=== PATIENT | female | born 1965 | race Caucasian/White ===

== ENCOUNTER → 2019-01-30 | Outpatient (CLI) | payer OTHER, SELFPAY ==
[2019-01-30 16:32] VITALS: BMI 35.3
[2019-01-31 10:18] LABS: Mucous, Urine 0 SEEN /hpf (<or=2+)
[2019-01-31 10:32] LABS: Color, Urine Yellow (Yellow); Glucose, Dipstick Normal (Normal); Ketone-Dipstick Negative (Negative); Leukocyte Esterase-Dipstick 500 /ul (Negative); Nitrite-Dipstick Negative (Negative); Occult Blood-Urine 25 /ul (Negative); Protein-Dipstick 15 mg/dl (Negative); Specific Gravity, Urine 1.015 (1.002-1.030); Urine Bilirubin Dipstick Negative (Negative); Urine Clarity Sl. Cloudy (Clear); Urine Urobilinogen Normal (Normal)
[2019-01-31 10:41] LABS: Bacteria 1+ /hpf (None Seen); Red Blood Cells-Urine 0-5 SEEN /hpf (0-5); Squamous Epithelial Cells - UA 0-5 SEEN /hpf (5-10); White Blood Cells 25-50 SEEN /hpf (0-5)
== END | disposition home or self-care (01) ==
LOC: LABSPEC 01-31 10:14
PROVIDERS: Family Provider Family Medicine; PCP Family Medicine; Referring Provider Nurse Practitioner Family; Visit Provider Nurse Practitioner Family
DX: O26.899 Other specified pregnancy related conditions, unspecified trimester (principal); R30.0 Dysuria; Z3A.00 Weeks of gestation of pregnancy not specified
CPT/HCPCS: 81001; 87086; 87088; 87186

== ENCOUNTER 2021-10-18 20:03 | Emergency (ER) | payer OTHER, SELFPAY ==
[2021-10-18 20:04] VITALS: BP 160/120; PULSE 83; RESP 18; TEMP 37.1; O2SAT 100; BMI 43.5
--- NOTE | 2021-10-18 20:50 | EDS_ITS ---
HPI HPI - GI History of Present Illness Chief Complaint: Diarrhea Detail of Chief Complaint: Diarrhea for 24 hours Informant: patient Diarrhea/Melena/Hematochezia GI Symptom: Positive for Diarrhea Narrative Narrative: Patient presents with diarrhea that started 24 hours ago. Patient states that she is going nonstop and having watery stools. She denies recent antibiotic usage. 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 Patient having dry heaves and states she cannot vomit because she has had bariatric surgery. Patient denies fevers. She denies urinary symptoms. She denies significant abdominal pain. Patient has not taken any Imodium because she does not think she can keep it down. Prior similar symptoms: No PFSH PFSH Medical History (Updated 10/18/21 @ 21:[address] Deon Moncada, DO) Anemia Home Medications oumpdaoc-elv-iwjx-FA-lutein 1 ea PO DAILY 11/02/15 [History Last Taken Unknown] ascorbate calcium (vitamin C) 500 mg tablet 500 mg PO DAILY 01/30/19 [History Last Taken Unknown] cyanocobalamin (vitamin B-12) 500 mcg tablet 500 mcg PO DAILY 01/30/19 [History Last Taken Unknown] ondansetron 4 mg PO Q8H PRN PRN #10 tab 10/18/21 [Rx Last Taken Unknown] Allergy/AdvReac Type Severity Reaction Status Date / Time No Known Allergies Allergy Verified 10/18/21 20:04 Family History Unknown Cancer Diabetes Obesity Arthritis Surgical History Bariatr surg stat w p/p Cholecystectomy planned History of appendectomy Social History Smoking Status: Never smoker ROS ROS ED Constitutional Constitutional ED: Reports systems reviewed and no addt'l complaints, except as documented; Denies body ache(s), change in weight or chills Eyes Eyes: Denies acute decrease in peripheral vision, change in vision, double vision or loss of vision ENT ENT ED: Reports none; Denies ear pain, lip swelling, loss taste/smell, neck pain, otalgia or sore throat Cardiovascular Cardiovascular: Reports none; Denies abdominal pain, chest pain with activity, leg edema, lightheadedness, palpitations, rapid heart rate or syncope Respiratory/Chest Respiratory/Chest: Reports none; Denies change in mental status, dry cough, dyspnea, hemoptysis, shortness of breath at rest or shortness of breath with exertion Gastrointestinal Gastrointestinal: Reports none, diarrhea and nausea; Denies abdominal pain, change in stool character, hematemesis, hematochezia, melena, rectal bleeding or vomiting Genitourinary Genitourinary ED: Reports none; Denies abdominal discomfort, anuria, dysuria, genital pain or polyuria Musculoskeletal Musculoskeletal: Reports none; Denies arthralgias, back pain, difficulty walking, extremity pain, muscle weakness or myalgias Integumentary Reports none; Denies abscess or rash Neurologic Neurologic: Reports none; Denies abnormal gait, confusion, focal weakness, frequent falls, headache(s), loss of vision, numbness, paresthesias, radicular pain, vertigo or weakness Psychiatric Psychiatric: Reports systems reviewed and no addt'l complaints, except as documented and none; Denies behavioral changes, confusion, difficulty concentrating, hallucinations, suicidal ideation, tactile hallucinations or visual hallucinations Endocrine Endocrinology: Denies none, cold intolerance, excessive sweating, fatigue or heat intolerance Hematologic/Lymphatic Hematologic/Lymphatic: Reports none; Denies anemia, easy bleeding or easy bruising Allergic/Immunologic Allergic/Immunologic ED: Denies as per HPI, none, lip swelling, mouth swelling, throat swelling, tongue swelling or hives EXAM Physical Exam Const Vital Signs: 10/18/21 20:04 Temperature 98.7 F Temperature Source Temporal Pulse Rate 83 Respiratory Rate 18 Blood Pressure 160/120 H Blood Pressure Mean 133 Pulse Ox 100 Oxygen Delivery Method Room Air Positive well nourished and well developed General Appearance ED: well developed and NAD HEENT Reports TM's clear and moist mucous membranes normocephalic and atraumatic; Negative for trauma or tenderness Tympanic Membrane ED: Yes TM's clear Eyes PERRL and EOMs intact bilaterally General Eye ED: Negative for pale conjunctiva or scleral icterus Neck no lymphadenopathy, supple and no JVD General: Negative for tenderness Chest Wall inspection of chest normal and palpation of chest normal Chest: Negative for tenderness Resp normal respiratory effort and clear to auscultation bilaterally Effort and Inspection: Negative for respiratory distress or pain with movement Auscultation: Negative for rhonchi, wheezes or diminished lung sounds Cardio regular rate, regular rhythm, S1 normal heart sound, S2 normal heart sound and no murmurs Peripheral Pulses: pulses 2+ throughout GI normal to inspection, nondistended, normoactive bowel sounds, soft to palpation, non-tender, non-distended and no masses Back/Spine no CVA tenderness and no thoracic nor lumbar tenderness Extremity normal to inspection General Extremety ED: Negative for edema General Extremity: Negative for edema Neuro oriented x3, CN's II-XII intact bilaterally, no sensory deficits noted and gait normal Sensorium / Orientation: awake, alert, oriented to person, oriented to place and oriented to time Motor Exam: strength 5/5 throughout and strength abnormal Psych mental status grossly normal Skin no rashes or lesions noted and no wounds MDM MDM MDM Narrative Medical decision making narrative: Line established on arrival. Patient was given a liter normal saline fluid bolus. She was given Zofran 4 mg IV and Imodium. She was feeling improved. At this point suspect a viral gastroenteritis. I did give her 40 mEq of potassium chloride as her potassium was slightly depressed at 3.2. Patient will be given a prescription for Zofran and advised to use Imodium as needed for the diarrhea. She is advised to push fluids. Patient to return if persistent vomiting, diarrhea, dehydration, severe abdominal pain, or condition should worsen anyway. Lab Data Labs: Laboratory Results - last 24 hr 10/18/21 10/18/21 20:57 20:57 WBC 5.4 RBC 5.39 Hgb 15.9 H Hct 46.8 MCV 86.8 MCH 29.5 MCHC 34.0 RDW Std Deviation 39.4 RDW Coeff of [place] 12.4 Plt Count 204 MPV 10.1 Immature Gran % (Auto) 0.200 Neut % (Auto) 82.2 H Lymph % (Auto) 6.9 L [place] % (Auto) 10.1 H Eos % (Auto) 0.2 Baso % (Auto) 0.4 Absolute Neuts (auto) 4.4 Absolute Lymphs (auto) 0.37 L Nucleated RBC % 0 Differential Comment SCANNED Sodium 136 Potassium 3.2 L Chloride 107 Carbon Dioxide 22.0 Anion Gap 7 BUN 12 Creatinine 0.78 Estim Creat Clear Calc 74.49 Est GFR (MDRD) Af Amer 98 Est GFR (MDRD) Non-Af 81 BUN/Creatinine Ratio 15.4 Glucose 136 H Calcium 8.9 Discharge Plan Triage Chief Complaint: Diarrhea ED Provider: Deon Moncada Dx/Rx/DC Orders Clinical Impression: Viral gastroenteritis, Acute hypokalemia Instructions: ED Hypokalemia, ED Gastroenteritis, Viral (Adult) Prescriptions: New ondansetron [ondansetron] 4 MG tablet 4 mg PO Q8H PRN PRN (Reason: Nausea) Qty: 10 RF: 0 No Action ascorbate calcium (vitamin C) 500 mg tablet 500 mg PO DAILY RF: 0 cyanocobalamin (vitamin B-12) [B-12 DOTS] 500 mcg tablet 500 mcg PO DAILY RF: 0 hbonjrui-irl-mxmo-FA-lutein 1 EACH tablet 1 ea PO DAILY RF: 0 Primary Care Provider: Kuldeep Ryan Referrals: Kuldeep Ryan DO [Primary Care Provider] - 3-5 Days Disposition Disposition: Home, Self Care
[2021-10-18] MEDS: 0.9% Normal Saline 1,000 ML 1000 ML IV (20:58)
[2021-10-18] MEDS: Loperamide 2 MG Capsule 4 MG PO (21:06)
[2021-10-18] MEDS: Ondansetron 4 MG/2 ML Vial IV (21:06)
[2021-10-18 21:17] LABS: Absolute Lymphocyte Count 0.37 X10^3/uL (0.83-4.51); Absolute Neutrophil Count 4.4 X10^3/uL (2.0-7.7); Basophil# 0.02 X10^3/uL; Basophil% 0.4 % (0-1); Eosinophil# 0.01 X10^3/uL; Eosinophils% 0.2 % (0-5); Hematocrit 46.8 % (37-47); Hemoglobin 15.9 g/dL (12.0-15.0); Lymphocyte # 0.37 X10^3/ul (0.83-4.51); Lymphocyte % 6.9 % (19-41); Mean Corpuscular Hgb 29.5 pg (27.0-32.0); Mean Corpuscular Volume 86.8 fL (81-99); Mean Platelet Vol. 10.1 fl (6.2-12.0); Monocyte# 0.54 X10^3/uL; Monocyte% 10.1 % (0-10); NRBC Flagged by Analyzer 0 % (0-5); Neutrophil # 4.41 X10^3/uL (2.7-7.7); Neutrophil % 82.2 % (47-70); POSITIVE DIFFERENTIAL YES; POSITIVE MORPHOLOGY YES; Platelet Count 204 K/mm3 (150-450); RBC Distribution Width CV 12.4 % (11.6-14.6); RBC Distribution Width SD 39.4 fl (35.1-43.9); Red Blood Count 5.39 M/mm3 (4.2-5.4); White Blood Count 5.4 K/mm3 (4.4-11.0)
[2021-10-18 21:19] LABS: Differential Indicated SCAN CRITERIA MET
[2021-10-18 21:29] LABS: Anion Gap 7 (5-15); BUN 12 mg/dL (7-18); BUN/Creat Ratio 15.4 RATIO (10-20); Calcium,Total 8.9 mg/dL (8.5-10.1); Chloride 107 mmol/L (98-107); Creatinine, Serum 0.78 mg/dL (0.55-1.02); EST Glomerular Filtration Rate 81 mL/min (>60); Est Glom Filt Rate - Afr Amer 98 mL/min (>60); Estimated Creatinine Clearance 74.49 ml/min; Glucose 136 mg/dL (74-106); Potassium 3.2 mmol/L (3.5-5.1); Sodium Level 136 mmol/L (136-145)
[2021-10-18 21:44] LABS: Differential Comment SCANNED
[2021-10-18] MEDS: Potassium Chloride Oral Tablet 20 MEQ 40 MEQ PO (21:48)
== END 2021-10-18 22:03 | disposition home or self-care (01) ==
PROVIDERS: Emergency Provider Emergency Medicine; PCP Student in an Organized Health Care Education/Training Program; Visit Provider Emergency Medicine
DX: A08.4 Viral intestinal infection, unspecified (principal); E87.6 Hypokalemia
CPT/HCPCS: 80048; 85025; 96361; 96374; 99283; J7030; A4216; J2405

== ENCOUNTER 2021-10-22 12:23 | Emergency (ER) | payer OTHER, SELFPAY ==
[2021-10-22 12:23] VITALS: BP 146/107; PULSE 79; RESP 18; TEMP 36.5; O2SAT 97; BMI 45.1
--- NOTE | 2021-10-22 13:01 | EX.ED.DYSGE1 ---
HPI <SHELDON Cordoba - Last Filed: 10/22/21 14:05> History of Present Illness Chief Complaint: Nausea/Vomiting/Diarrhea Narrative Narrative: 56-year-old female with history of gastric bypass surgery 18 years ago, hypertension presents to the emergency department with multiple days of nausea, vomiting, diarrhea. Patient states that everything that she drinks goes through her and diarrhea. Patient states last evening she was up at 4 AM to 6 AM having diarrhea. Patient was seen here on October 18, 2021 which was 4 days ago, patient states that her symptoms persisted. She did have slightly low potassium, and today she is feels weak, denies any bladder and stool or vomit. Patient has no abdominal pain. Patient denies any fevers or chills. 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 PFSH <SHELDON Cordoba - Last Filed: 10/22/21 14:05> [facility] Medical History (Updated 10/22/21 @ 14:00 by SHELDON Cordoba) Anemia Home Medications fpzegohe-vti-wyhb-FA-lutein 1 ea PO DAILY 11/02/15 [History Last Taken Unknown] ascorbate calcium (vitamin C) 500 mg tablet 500 mg PO DAILY 01/30/19 [History Last Taken Unknown] cyanocobalamin (vitamin B-12) 500 mcg tablet 500 mcg PO DAILY 01/30/19 [History Last Taken Unknown] ondansetron 4 mg PO Q8H PRN PRN #10 tab 10/18/21 [Rx Last Taken Unknown] promethazine 25 mg PO TID PRN #10 tab 10/22/21 [Rx Last Taken Unknown] Allergy/AdvReac Type Severity Reaction Status Date / Time No Known Allergies Allergy Verified 10/18/21 20:04 Family History Unknown Cancer Diabetes Obesity Arthritis Surgical History Bariatrc surg stat w p/p Cholecystectomy planned History of appendectomy Social History Smoking Status: Never smoker ROS <SHELDON Cordoba - Last Filed: 10/22/21 14:05> ROS ED ROS Narrative Constitutional: Negative for fever, chills, weight loss, weakness Eyes: Negative for vision loss, vision change, double vision ENT: Negative for any sore throat, ear pain, congestion Cardiovascular: Negative for any chest pain, tightness, palpitations, racing heartbeat Respiratory: Negative for any cough, sputum production, hemoptysis, shortness of breath, shortness of breath on exertion, orthopnea Gastrointestinal: Negative for any abdominal pain, constipation, blood in stool, blood in vomit. Positive for nausea, vomiting, diarrhea : Negative for any urinary frequency, incontinence, dysuria, retention, blood in urine Muscle skeletal: Negative for any muscle joint pain, stiffness, myalgias, arthralgias, neck pain, back pain Neurological: Negative for any headache, dizziness, syncope, numbness or tingling Skin: Negative for any rashes, lumps, itching, abrasions, lacerations Psychiatric: Negative for any depression, anxiety, stress, suicidal ideation, homicidal ideation Hematologic: Negative for any easy bruising, excessive bruising, easy bleeding Allergies: Negative for any eczema, hives, rash EXAM <SHELDON Cordoba - Last Filed: 10/22/21 14:05> Physical Exam Narrative Exam Narrative: Vital signs reviewed. Patient was drinking oral fluids on initial exam. Patient appears to be in no distress. HEET: Head normocephalic atraumatic, TMs clear bilaterally. Posterior pharynx is clear, moist mucous membranes. Nares clear bilaterally. Neck: Supple with no lymphadenopathy or tenderness. No signs of meningismus, negative jolt sign. Cardiac: Regular rate and rhythm no murmurs gallops or rubs, equal peripheral pulses bilaterally. Respiratory: Lungs clear to auscultation bilaterally. No chest tenderness. Abdomen: Soft, nontender, nondistended. No abdominal bruit or pulsatile masses. No hepatosplenomegaly Extremities: No peripheral edema, no signs of gross trauma or deformity. Active full range of motion of all extremities. Neuro: Cranial nerves II through XII intact, no focal neurological deficits. Skin: Clean dry and intact with no rash, purpura, petechiae, vesicles or pustules. Backslash flank: No CVA tenderness, no midline spinal tenderness, no deformity. Psych: Normal mood and affect. No SI, HI or acute psychosis. Const Vital Signs: 10/22/21 12:23 10/22/21 14:20 Temperature 97.7 F L Temperature Source Temporal Pulse Rate 79 61 Respiratory Rate 18 18 Blood Pressure 146/107 H 116/85 H Blood Pressure Mean 120 Pulse Ox 97 Oxygen Delivery Method Room Air Positive well nourished and well developed General Appearance ED: well developed <Dr. Vipul Aviles, DO - Last Filed: 10/22/21 15:49> Physical Exam Const Vital Signs: 10/22/21 12:23 10/22/21 14:20 Temperature 97.7 F L Temperature Source Temporal Pulse Rate 79 61 Respiratory Rate 18 18 Blood Pressure 146/107 H 116/85 H Blood Pressure Mean 120 Pulse Ox 97 Oxygen Delivery Method Room Air MDM <SHELDON Cordoba - Last Filed: 10/22/21 14:05> MDM MDM Narrative Medical decision making narrative: Patient appears well, patient appears nontoxic, vital signs are stable. Patient presents to the emergency department with complaints of continued nausea and vomiting for the last 5 days. Patient was seen here 2 days ago for the same and was discharged home. Patient was drinking by mouth fluids on my initial exam. Patient appeared well. Patient CBC was unremarkable, chemistry showed a normal potassium, this was low previously. Lactic acid was negative. Patient had no pain in her abdomen or pelvis I do not believe that any radiology would be necessary. Patient received IV fluids, IV Zofran x2, patient on reassessment looked well. At this time, I believe the patient is stable for discharge, she will be given Phenergan for home. Instructed return for any worsening symptoms. Patient is stable for discharge. Lab Data Attestation: I reviewed the patient's lab results. Labs: Laboratory Results - last 24 hr 10/22/21 10/22/21 10/22/21 13:00 13:00 13:00 WBC 4.8 RBC 5.29 Hgb 15.5 H Hct 45.5 MCV 86.0 MCH 29.3 MCHC 34.1 RDW Std Deviation 38.9 RDW Coeff of [place] 12.3 Plt Count 192 MPV 10.5 Immature Gran % (Auto) 1.900 H Neut % (Auto) 51.4 Lymph % (Auto) 21.1 [place] % (Auto) 23.6 H Eos % (Auto) 1.4 Baso % (Auto) 0.6 Absolute Neuts (auto) 2.5 Absolute Lymphs (auto) 1.02 Nucleated RBC % 0 Differential Comment SCANNED Sodium 140 Potassium 3.5 Chloride 106 Carbon Dioxide 26.0 Anion Gap 8 BUN 11 Creatinine 0.80 Estim Creat Clear Calc 71.76 Est GFR (MDRD) Af Amer 95 Est GFR (MDRD) Non-Af 79 BUN/Creatinine Ratio 13.8 Glucose 109 H Lactic Acid 0.8 Calcium 8.8 Total Bilirubin 0.70 AST 51 H ALT 81 H Alkaline Phosphatase 115 Total Protein 6.9 Albumin 3.2 Globulin 3.7 Albumin/Globulin Ratio 0.9 Lipase 31 L <Dr. Vipul Aviles, DO - Last Filed: 10/22/21 15:49> MDM MDM Narrative Medical decision making narrative: This patient was seen with a PA/ENERGY RATER Individually assessed they patient including history and physical. I have reviewed everything on the chart that is available and agree with the documentation provided by the PA/ENERGY RATER including discussion about the assessment, treatment plan, discussion, and return precautions. 56-year-old female returning for persistent nausea and vomiting. CBC and BMP are obtained and within normal limits. Lactate negative. Patient given Zofran, IV fluids and on reevaluation is doing well. Since her nausea is improved I feel she is stable for discharge. I will add Phenergan to her home-going so she can alternate Zofran with this. She is counseled on a bland diet and advancing as tolerated. Impression: 1. Gastroenteritis Lab Data Attestation: I reviewed the patient's lab results. Labs: Laboratory Results - last 24 hr 10/22/21 10/22/21 10/22/21 13:00 13:00 13:00 WBC 4.8 RBC 5.29 Hgb 15.5 H Hct 45.5 MCV 86.0 MCH 29.3 MCHC 34.1 RDW Std Deviation 38.9 RDW Coeff of [place] 12.3 Plt Count 192 MPV 10.5 Immature Gran % (Auto) 1.900 H Neut % (Auto) 51.4 Lymph % (Auto) 21.1 [place] % (Auto) 23.6 H Eos % (Auto) 1.4 Baso % (Auto) 0.6 Absolute Neuts (auto) 2.5 Absolute Lymphs (auto) 1.02 Nucleated RBC % 0 Differential Comment SCANNED Sodium 140 Potassium 3.5 Chloride 106 Carbon Dioxide 26.0 Anion Gap 8 BUN 11 Creatinine 0.80 Estim Creat Clear Calc 71.76 Est GFR (MDRD) Af Amer 95 Est GFR (MDRD) Non-Af 79 BUN/Creatinine Ratio 13.8 Glucose 109 H Lactic Acid 0.8 Calcium 8.8 Total Bilirubin 0.70 AST 51 H ALT 81 H Alkaline Phosphatase 115 Total Protein 6.9 Albumin 3.2 Globulin 3.7 Albumin/Globulin Ratio 0.9 Lipase 31 L Discharge Plan Triage Chief Complaint: Nausea/Vomiting/Diarrhea ED Midlevel Provider: Tre Yi ED Provider: Vipul Aviles Dx/Rx/DC Orders Clinical Impression: Gastroenteritis Instructions: ED Gastritis (Adult) Prescriptions: New promethazine 25 mg tablet 25 mg PO TID PRN (Reason: nausea and vomiting) Qty: 10 RF: 0 No Action ascorbate calcium (vitamin C) 500 mg tablet 500 mg PO DAILY RF: 0 cyanocobalamin (vitamin B-12) [B-12 DOTS] 500 mcg tablet 500 mcg PO DAILY RF: 0 gcvcgeth-xrl-ewue-FA-lutein 1 EACH tablet 1 ea PO DAILY RF: 0 ondansetron [ondansetron] 4 MG tablet 4 mg PO Q8H PRN PRN (Reason: Nausea) Qty: 10 RF: 0 Stand Alone Forms: ED Work / School Excuse Primary Care Provider: Kuldeep Ryan Referrals: Kuldeep Ryan DO [Primary Care Provider] - Activity Restrictions/Additional Instructions: Please eat a bland diet, please return for any worsening symptoms. Please take Phenergan as needed, there is a side effect of dizziness, sleepiness with the Phenergan Print Language: Scottish Disposition Disposition: Home, Self Care Discharge Date/Time: 10/22/21 14:22
[2021-10-22] MEDS: Ondansetron 4 MG/2 ML Vial IV ×2 (13:02→14:02)
[2021-10-22] MEDS: 0.9% Normal Saline 1,000 ML 1000 ML IV (13:02)
[2021-10-22 13:12] LABS: Absolute Lymphocyte Count 1.02 X10^3/uL (0.83-4.51); Absolute Neutrophil Count 2.5 X10^3/uL (2.0-7.7); Basophil# 0.03 X10^3/uL; Basophil% 0.6 % (0-1); Eosinophil# 0.07 X10^3/uL; Eosinophils% 1.4 % (0-5); Hematocrit 45.5 % (37-47); Hemoglobin 15.5 g/dL (12.0-15.0); Lymphocyte # 1.02 X10^3/ul (0.83-4.51); Lymphocyte % 21.1 % (19-41); Mean Corp Hgb Conc 34.1 g/dL (32-36); Mean Corpuscular Hgb 29.3 pg (27.0-32.0); Mean Platelet Vol. 10.5 fl (6.2-12.0); Monocyte# 1.14 X10^3/uL; Monocyte% 23.6 % (0-10); NRBC Flagged by Analyzer 0 % (0-5); Neutrophil # 2.49 X10^3/uL (2.7-7.7); Neutrophil % 51.4 % (47-70); POSITIVE MORPHOLOGY YES; Platelet Count 192 K/mm3 (150-450); RBC Distribution Width CV 12.3 % (11.6-14.6); RBC Distribution Width SD 38.9 fl (35.1-43.9); Red Blood Count 5.29 M/mm3 (4.2-5.4); White Blood Count 4.8 K/mm3 (4.4-11.0)
[2021-10-22 13:14] LABS: Differential Indicated SCAN CRITERIA MET
[2021-10-22 13:27] LABS: Differential Comment SCANNED
[2021-10-22 13:29] LABS: ALB/GLOB Ratio 0.9 RATIO (0.9-2.4); AST(SGOT) 51 U/L (15-37); Alanine Aminotransfer ALT/SGPT 81 U/L (13-56); Albumin, Serum 3.2 g/dL (3.2-5.0); Alkaline Phosphatase 115 U/L (45-117); Anion Gap 8 (5-15); BUN 11 mg/dL (7-18); BUN/Creat Ratio 13.8 RATIO (10-20); Calcium,Total 8.8 mg/dL (8.5-10.1); Chloride 106 mmol/L (98-107); EST Glomerular Filtration Rate 79 mL/min (>60); Est Glom Filt Rate - Afr Amer 95 mL/min (>60); Estimated Creatinine Clearance 71.76 ml/min; Globulin 3.7 g/dL (2.2-4.2); Glucose 109 mg/dL (74-106); Lipase 31 U/L (73-393); Potassium 3.5 mmol/L (3.5-5.1); Protein, Total 6.9 g/dL (6.4-8.2); Sodium Level 140 mmol/L (136-145)
[2021-10-22 13:38] LABS: Lactic Acid 0.8 mmol/L (0.4-1.9)
[2021-10-22 14:20] VITALS: BP 116/85; PULSE 61; RESP 18
== END 2021-10-22 14:22 | disposition home or self-care (01) ==
PROVIDERS: Nurse Practitioner; Emergency Provider Student in an Organized Health Care Education/Training Program; PCP Student in an Organized Health Care Education/Training Program; Visit Provider Student in an Organized Health Care Education/Training Program
DX: K52.9 Noninfective gastroenteritis and colitis, unspecified (principal); D64.9 Anemia, unspecified; Z98.84 Bariatric surgery status
CPT/HCPCS: 80053; 83605; 83690; 85025; 96361; 96374; 96376; 99283; J7030; A4216; J2405

== ENCOUNTER → 2022-09-02 | Outpatient (CLI) | payer OTHER, SELFPAY ==
[2022-09-09 21:15] LABS: HPV APTIMA, High Risk Negative (Negative)
== END | disposition home or self-care (01) ==
PROVIDERS: PCP Student in an Organized Health Care Education/Training Program; Referring Provider Advanced Practice Midwife; Visit Provider Advanced Practice Midwife
DX: Z12.4 Encounter for screening for malignant neoplasm of cervix (principal)
CPT/HCPCS: 87624; 88175; G0145

== ENCOUNTER → 2022-09-06 | Outpatient (CLI) | payer OTHER, SELFPAY ==
--- NOTE | 2022-09-06 15:19 | US_ITS ---
STUDY: ULTRASOUND TRANSVAGINAL CLINICAL: Female, 56 years old. Postmenopausal bleeding TECHNIQUE: Transvaginal COMPARISON: None. FINDINGS: Normal uterine size measuring 6.9 cm in maximal craniocaudal dimension. There are no myometrial masses. Abnormal endometrial thickness measuring 9.8 mm. There are no endometrial masses, and there is no fluid in the endometrial cavity. In combination with patient''s bleeding, this needs further evaluation to include biopsy to exclude endometrial carcinoma. Normal uterine cervix. Neither ovary visualized, no suspicious cystic or solid mass in the pelvis. There is no free fluid in the pelvis. Polycystic ovary disease: No. US/Transvaginal Non- IMPRESSION: Abnormally thickened endometrium at 9.8 mm. Since patient is also having abnormal bleeding, further evaluation of the endometrium to include biopsy is recommended to exclude endometrial carcinoma Electronically Signed: Oli Mariee MD at 9:08 EDT ,
--- NOTE | 2022-09-06 15:54 | BI_ITS ---
MAMMOGRAPHY - BILATERAL SCREENING 3-D TOMOSYNTHESIS REASON FOR EXAM: Female, 56 years old. Routine screening PERTINENT HISTORY: No significant family history. TECHNIQUE: 2-D mammograms and 3-D Tomosynthesis of the breast (s) were performed. CAD was performed. COMPARISON: None. Baseline examination. FINDINGS: The breast composition is almost entirely fat. Scattered benign calcifications are seen. No dense spiculated masses or suspicious microcalcifications are identified. No architectural distortion is identified. There is no skin thickening or retraction. BI/SCRN MAMM (CAD)W/VIDYA BILAT IMPRESSION: No mammographic signs of malignancy. Routine yearly mammograms recommended. ASSESSMENT CATEGORY: BIRADS Category 1: Negative. A letter regarding these results will be sent to the patient by the facility within 30 days. FOLLOW UP RECOMMENDATION: Yearly follow up mammogram recommended. (A) Approximately 10% of breast cancers are not detected by mammography. A normal mammogram should not delay biopsy of a clinically suspicious abnormality. Electronically Signed: Oli Mariee MD at 7:40 EDT ,
== END | disposition home or self-care (01) ==
LOC: US 15:18
PROVIDERS: PCP Student in an Organized Health Care Education/Training Program; Referring Provider Advanced Practice Midwife; Visit Provider Advanced Practice Midwife
DX: Z12.31 Encounter for screening mammogram for malignant neoplasm of breast (principal); N95.0 Postmenopausal bleeding
CPT/HCPCS: 76830; 77063; 77067

== ENCOUNTER → 2022-09-15 | Outpatient (CLI) | payer OTHER, SELFPAY ==
--- NOTE | 2022-09-15 15:00 | EMB_PTH ---
PATIENT: OBED BREAUX LOC: [facility] U#:[id number] AGE/SX: 56/F ROOM: RE09/15/[address]: Letty Hogue CNM : 1965 BED: DIS: 09/15/2022 SPEC #: [id number] RECD: 09/15/22 16:05 STATUS: JOHNNY REQ #: [id number] BETH: 09/15/22 15:[address]: Letty Hogue DEPT: SURGICAL PATHOLOGY RECD BY: Qiana Burns ENTERED: 09/16/22 08:55 SP TYPE: ENDOM BX/C HUMBERTO DR: Dr. Kuldeep Ryan, DO Tissues: Endometrium, NOS Procedures: Surgery Specimen Level IV HEADER OPERATION: Endometrial biopsy PRE-OP DIAGNOSIS: Postmenopausal bleeding TISSUE SUBMITTED: Endometrial tissue on progesterone MICROSCOPIC DIAGNOSIS Endometrium, biopsy: Endometrial adenocarcinoma, FIGO grade I. AM:louis 09/17/2022 COMMENT Case has been reviewed in consultation with Dr. Gauthier who concurs with the above diagnosis. IDC:SJ MICROSCOPIC DESCRIPTION Slides are reviewed. GROSS DESCRIPTION Received is one container labeled with the patient's name and not further designated. The specimen consists of multiple irregular fragments of mucoid light petty soft tissue that in aggregate measure 2.2 x 2.0 x 0.1 cm. The specimen is totally submitted in one cassette. / AM:louis 09/16/2022 TC:0 CPT: 53025
== END | disposition home or self-care (01) ==
LOC: LABSPEC 16:10
PROVIDERS: PCP Student in an Organized Health Care Education/Training Program; Visit Provider Advanced Practice Midwife
DX: C54.1 Malignant neoplasm of endometrium (principal)
CPT/HCPCS: 88305

== ENCOUNTER → 2023-10-13 | Outpatient (CLI) | payer OTHER, SELFPAY ==
[2023-10-19 08:11] LABS: HPV APTIMA, High Risk Negative (Negative)
== END | disposition home or self-care (01) ==
PROVIDERS: Referring Provider Advanced Practice Midwife; Visit Provider Advanced Practice Midwife
DX: Z12.4 Encounter for screening for malignant neoplasm of cervix (principal); C55 Malignant neoplasm of uterus, part unspecified; N89.8 Other specified noninflammatory disorders of vagina
CPT/HCPCS: 87070; 87205; 87624; 88175; G0145

== ENCOUNTER → 2023-10-28 | Outpatient (CLI) | payer OTHER, SELFPAY ==
--- NOTE | 2023-10-28 09:55 | BI_ITS ---
MAMMOGRAPHY - BILATERAL SCREENING REASON FOR EXAM: Female, 58 years old. Routine annual screening examination. PERTINENT HISTORY: Non-contributory. TECHNIQUE: Digital bilateral breast vidya (3D mammographic acquisition) in the CC and MLO projections. 2-D mediolateral oblique (MLO) and craniocaudad (CC) views of both breasts were obtained. CAD: Full Field Digital Mammography with Computer Added Detection was performed. COMPARISON: Comparison is made with prior study dated September 06, 2022. FINDINGS: Breast Composition: The breasts are almost entirely fatty. There are no dominant masses or suspicious calcifications. Stable benign-appearing bilateral axillary lymph nodes. No other significant abnormalities are identified. There has been no significant change since the prior study. BI/SCRN MAMM (CAD)W/VIDYA BILAT IMPRESSION: Stable bilateral screening mammogram. Yearly follow-up mammogram recommended. (A) ASSESSMENT CATEGORY: BIRADS Category 2: Benign. A letter regarding these results will be sent to the patient by the facility within 30 days. Approximately 10% of breast cancers are not detected by mammography. A normal mammogram should not delay biopsy of a clinically suspicious abnormality. [id number] Electronically Signed: Cornelio Moon MD at 11:11 EDT ,
== END | disposition home or self-care (01) ==
PROVIDERS: Referring Provider Advanced Practice Midwife; Visit Provider Advanced Practice Midwife
DX: Z12.31 Encounter for screening mammogram for malignant neoplasm of breast (principal)
CPT/HCPCS: 77063; 77067

== ENCOUNTER → 2024-07-30 | Outpatient (CLI) | payer OTHER, SELFPAY ==
[2024-07-30 08:06] LABS: Absolute Lymphocyte Count 1.03 X10^3/uL (0.83-4.51); Absolute Neutrophil Count 4.3 X10^3/uL (2.0-7.7); Basophil# 0.06 X10^3/uL; Eosinophils% 3.2 % (0-5); Hematocrit 45.4 % (37-47); Hemoglobin 14.8 g/dL (12.0-15.0); Lymphocyte # 1.03 X10^3/ul (0.83-4.51); Lymphocyte % 16.6 % (19-41); Mean Corp Hgb Conc 32.6 g/dL (32-36); Mean Corpuscular Hgb 29.2 pg (27.0-32.0); Mean Corpuscular Volume 89.7 fL (81-99); Monocyte# 0.61 X10^3/uL; Monocyte% 9.8 % (0-10); NRBC Flagged by Analyzer 0 % (0-5); Neutrophil # 4.29 X10^3/uL (2.7-7.7); Neutrophil % 68.9 % (47-70); POSITIVE COUNT YES; RBC Distribution Width SD 42.3 fl (35.1-43.9); Red Blood Count 5.06 M/mm3 (4.2-5.4); White Blood Count 6.2 K/mm3 (4.4-11.0)
[2024-07-30 08:45] LABS: ALB/GLOB Ratio 1.4 RATIO (0.9-2.4); AST(SGOT) 25 U/L (<=31); Alanine Aminotransfer ALT/SGPT 23 U/L (<=34); Alkaline Phosphatase 123 U/L (35-104); Anion Gap 10 (5-15); BUN 18 mg/dL (4-19); Calcium 8.7 mg/dL (7.6-11.0); Carbon Dioxide 21.9 mmol/L (22.0-29.0); Chloride 111 mmol/L (96-108); Creatinine, Serum 0.65 mg/dL (0.70-1.20); EST Glomerular Filtration Rate 101 (>60); Globulin 2.8 g/dL (2.2-4.2); Glucose 89 mg/dL (70-99); Potassium 4.3 mmol/L (3.3-5.1); Protein, Total 6.7 g/dL (5.9-8.4); Sodium Level 142 mmol/L (133-145); Total Bilirubin 0.38 mg/dL (0.00-1.30)
[2024-07-30 09:31] LABS: Differential Indicated SCAN CRITERIA MET
[2024-07-30 09:32] LABS: Platelet Estimate SLT DEC (ADEQ)
== END | disposition home or self-care (01) ==
PROVIDERS: PCP Internal Medicine; Referring Provider Internal Medicine; Visit Provider Internal Medicine
DX: Z00.00 Encounter for general adult medical examination without abnormal findings (principal)
CPT/HCPCS: 36415; 80053; 85025